=== PATIENT | female | born 1980 | race Asian ===

== ENCOUNTER 2020-02-15 15:10 | Outpatient (CLI) | payer OTHER, SELFPAY ==
--- NOTE | ~2020-02-15 | US_ITS ---
US thyroid INDICATION: Abnormal thyroid function tests TECHNIQUE: Real-time sonographic images of the thyroid gland were obtained. COMPARISON: 08/31/2011 FINDINGS: The right thyroid lobe measures 5.3 x 3.3 x 2.8 cm. The left thyroid lobe measures 4.8 x 1 .9 x 1.9 cm. There are multiple masses of the right lobe, largest dominant mass measuring 2.7 x 1.5 x 1.7 cm which is solid, hyperechoic, wider than tall, irregular margins and no internal calcification s, TR 4. There is a hypoechoic right thyroid mass measuring 2.1 x 1.4 x 1.7 cm which is solid, hypoec hoic, wider than tall, irregular margins with no calcifications, TR 4. In the left lobe there is a he terogeneous mass predominantly hyperechoic, solid, wider than tall, irregular margins measuring 1.9 c m maximum dimension, TR 4. Normal vascular flow is present. IMPRESSION: 1. Multiple bilateral thyroid masses. Follow-up ultrasound-guided fine-needle aspiration biopsy of 2 dominant right and one dominant left thyroid masses recommended. Reviewed, dictated and finalized at location A. IMPRESSION: 1. Multiple bilateral thyroid masses. Follow-up ultrasound-guided fine-needle aspiration biopsy of 2 dominant right and one dominant left thyroid masses naseem mmended.
== END 2020-02-15 15:11 | disposition home or self-care (01) ==
PROVIDERS: PCP Family Medicine; Visit Provider Family Medicine
DX: E04.1 Nontoxic single thyroid nodule (principal)
CPT/HCPCS: 76536

== ENCOUNTER 2020-02-25 13:42 | Outpatient (CLI) | payer OTHER, SELFPAY ==
--- NOTE | ~2020-02-25 | US_ITS ---
EXAMINATION: US abdomen complete EXAM DATE: 02/25/2020 14:10 INDICATION: Epigastric pain, fever. TECHNIQUE: Multiple grayscale and Doppler images of the complete abdomen were obtained (by a technolo darlyn who performed the scan) and subsequently reviewed. Comparison is made to prior examination from 11/22/2016. FINDINGS: The abdominal aorta is normal in caliber. Visualized portion IVC is patent. The pancreatic head a nd body are normal in appearance. The pancreatic tail is not visualized. The liver has normal echogenicity and contour. There are no focal liver lesions identified. There is no evidence of intrahepatic biliary duct dilation. Portal venous flow was seen in the hepatopedal , normal direction and has normal Doppler waveform. Common bile duct measures 5 mm, which is normal. The gallbladder fossa is unremarkable. Right kidney: There is normal contour and echogenicity. It measures 9.6 x 4.1 x 4.6 centimeters. T here are no focal renal lesions identified. There is no hydronephrosis. Left kidney: There is normal contour and echogenicity. It measures 11.4 x 5.8 x 4.5 centimeters. T here are no focal renal lesions identified. There is no hydronephrosis. The spleen measures 9.6 centimeters and is morphologically normal. IMPRESSION: 1. Unremarkable complete abdominal ultrasound exam. Reviewed, dictated and finalized at location A.
== END 2020-02-25 13:43 ==
LOC: MICIMG 13:44
PROVIDERS: Visit Provider Family Medicine
DX: R10.13 Epigastric pain (principal)
CPT/HCPCS: 76700

== ENCOUNTER 2020-03-25 02:07 | Outpatient (CLI) | payer OTHER, SELFPAY ==
[2020-03-25 17:03] LABS: SARS-CoV-2 RNA PCR Negative
== END 2020-03-25 02:08 | disposition home or self-care (01) ==
LOC: ANHCOVIDDT 02:07
PROVIDERS: PCP Family Medicine; Visit Provider Internal Medicine Gastroenterology
DX: Z01.812 Encounter for preprocedural laboratory examination (principal); Z20.828 Contact with and (suspected) exposure to other viral communicable diseases
CPT/HCPCS: 87635; C9803; U0003

== ENCOUNTER 2020-03-27 00:09 | Day surgery (SDC) | payer OTHER, SELFPAY ==
[2020-03-17 14:28] VITALS: BMI 32.3
[2020-03-27 08:32] VITALS: BP 124/78; PULSE 76; RESP 16; TEMP 36.8; O2SAT 100; BMI 32.4
--- NOTE | 2020-03-27 08:40 | WPDANESEPPF ---
Anes - Initial Pre Proc Eval Procedure: Operation Date: 03/27/20 09:00 Proposed Procedures p Esophagogastroduodenoscopy - Ezequiel Costello MD Date/Time: 03/27/20 08:40 Surgeon: Ezequiel Costello MD Pre Op Diagnosis: heartburn Patient Data Age: 39 Gender: F Height: 1.5 m Weight: 72.8 kg Last Vital Signs Temp 36.8 C 03/27/20 08:32 Pulse 76 03/27/20 08:32 Resp 16 03/27/20 08:32 BP 124/78 03/27/20 08:32 Pulse Ox 100 03/27/20 08:32 Allergies Allergy/AdvReac Type Severity Reaction Status Date / Time No Known Allergies Allergy Verified 03/17/20 14:23 Home Medications Medication Instructions Recorded Confirmed Type cetirizine [Zyrtec] 10 mg PO DAILY 03/17/20 03/27/20 History omeprazole 20 mg PO BID 03/17/20 03/27/20 History acetaminophen [Tylenol] 325 mg PO ONCE PRN 03/27/20 03/27/20 History Patient hx anesthesia problems: none Family hx anesthesia problems: none PMFSH Past Medical History Medical History (Updated 03/27/20 @ 08:42 by Rashel Aponte MD) Anxiety Gastroesophageal reflux disease Brtit's disease Obesity Vaginal delivery x 2 (vaginal after ) Surgical History Surgical History History of cholecystectomy Previous section Social History Social History Smoking status: Never smoker Second hand tobacco smoke exposure: No Alcohol intake: never Substance use: never Living arrangements: with family Additional living arrangements comments: Spouse and 4 Children Gender identity (if verbalized by the patient): Female Spiritual care concerns: No Anes - Eval Final PreProcedure Day of Procedure 03/27/20 08:40 Patient weight: obese Heart: regular rate and rhythm Lungs: clear to auscultation and normal air movement Airway: Mallampati scale class II Neurological: alert and oriented Last oral intake: >/= 8 hours ASA classification: III Emergent: no Anesthetic plan: proceed Anesthesia type and monitoring: general GIVS Informed Consent: The patient's anesthetic plan and its attendant risks and benefits were discussed with the patient/family/POA. Questions were solicited and answers provided to the satisfaction of the patient/family/POA.
[2020-03-27] MEDS: LACTATED RINGERS 1,000 ML 150 ML IV CONT (09:14)
--- NOTE | 2020-03-27 09:21 | WPDGICN ---
Assessment and Plan Assessment and plan (1) Epigastric abdominal pain: Code(s): R10.13 - Epigastric pain Status: Acute Assessment and Plan: Epigastric pain most suspicious for acid reflux. Patient already treated with Prilosec would recommend continuing this as well as anti-reflux measures. Because of ongoing pain an EGD will be performed today. 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 John Triana. Patient complains of mid epigastric pain substernal discomfort. She describes is a fullness or a swelling. It appears to worsen particularly after eating large amounts of food. She denies ever pain however. She denies any dysphagia. She denies weight loss or bleeding. Currently followed by because of thrombocytosis. Patient presents today for endoscopy to evaluate this epigastric discomfort. Patient has been treated with Prilosec an acids with some improvement of symptoms. Symptoms have been present since at least December of this year. Review of Systems Review of Systems: All systems reviewed & are unremarkable except as noted in HPI and below PMFSH Past Medical History Medical History Anxiety Gastroesophageal reflux disease Britt's disease Obesity Vaginal delivery x 2 (vaginal after ) Surgical History Surgical History History of cholecystectomy Previous section Family History Family History Mother Hypertension Patient's mother is Father Patient's father is in good health Sibling Patient's sister is in good health Patient's brother is in good health Other Family history of allergic disorder Social History Social History Smoking status: Never smoker Second hand tobacco smoke exposure: No Alcohol intake: never Substance use: never Living arrangements: with family Additional living arrangements comments: Spouse and 4 Children Gender identity (if verbalized by the patient): Female Spiritual care concerns: No Meds Home Medications and Allergies Home Medications Medication Instructions Recorded Confirmed Type cetirizine [Zyrtec] 10 mg PO DAILY 03/17/20 03/27/20 History omeprazole 20 mg PO BID 03/17/20 03/27/20 History acetaminophen [Tylenol] 325 mg PO ONCE PRN 03/27/20 03/27/20 History Allergies Allergy/AdvReac Type Severity Reaction Status Date / Time No Known Allergies Allergy Verified 03/17/20 14:23 Vital Signs Vital Signs - 24 hr 03/27/20 08:32 Temperature 98.3 F Pulse Rate 76 Respiratory Rate 16 Blood Pressure 124/78 Pulse Oximetry 100 Exam Narrative: Exam Narrative: Physical exam reveals patient to be alert. Vital signs stable. HEENT exam unremarkable. She is anicteric. Lungs are clear to auscultation and percussion. Heart is without murmur or extra sounds. Abdominal exam bowel sounds are present soft nontender with no organomegaly. Digital rectal exam deferred at this time.
[2020-03-27] MEDS: BENZOCAINE (*SP) 60 ML SPRAY CAN (HURRICAINE) 1 SPRAY MUCOUS MEM (09:36)
[2020-03-27 09:45] VITALS: BP 103/58; PULSE 71; RESP 22; O2SAT 97
[2020-03-27 09:55] VITALS: BP 104/59; PULSE 65; RESP 21; O2SAT 98
[2020-03-27 10:05] VITALS: BP 113/73; PULSE 77; RESP 19; O2SAT 97
== END 2020-03-27 10:35 | disposition home or self-care (01) ==
PROVIDERS: PCP Family Medicine; Referring Provider Internal Medicine Hematology & Oncology; Visit Provider Internal Medicine Gastroenterology
PROC: 0DJ08ZZ Inspection of Upper Intestinal Tract, Via Natural or Artificial Opening Endoscopic (ICD-10-PCS; CPT 43235; principal; 2020-03-27 09:00)
DX: R10.13 Epigastric pain (principal); K21.9 Gastro-esophageal reflux disease without esophagitis; E06.3 Autoimmune thyroiditis; E66.9 Obesity, unspecified; Z68.32 Body mass index [BMI] 32.0-32.9, adult
CPT/HCPCS: 43239; 87081; 87635; C9803; J2704; J7120; U0003

== ENCOUNTER 2021-01-10 10:19 | Outpatient (CLI) | payer OTHER, SELFPAY ==
--- NOTE | ~2021-01-10 | MM_ITS ---
EXAMINATION: MM screening joan BI w josh HISTORY: Screening TECHNIQUE: Craniocaudal and mediolateral oblique 3-D tomosynthesis images were obtained and synthetic 2-D images were generated. CAD analysis was submitted and interpreted. COMPARISON: 06/28/2018 BREAST PARENCHYMAL COMPOSITION: There are scattered areas of fibroglandular density. FINDINGS: There is no evidence of suspicious mass, calcification, or architectural distortion to sugg est malignancy in either breast. There has been no suspicious interval change. IMPRESSION: 1. No mammographic evidence of malignancy. 2. Recommend routine screening mammography in one year. BI-RADS Category 1: Negative Reviewed, dictated and finalized at location A.
== END 2021-01-10 10:20 | disposition home or self-care (01) ==
LOC: ANHIMG 10:21
PROVIDERS: PCP Family Medicine; Visit Provider Obstetrics & Gynecology
DX: Z12.31 Encounter for screening mammogram for malignant neoplasm of breast (principal)
CPT/HCPCS: 77063; 77067

== ENCOUNTER → 2022-03-25 09:31 | Outpatient (CLI) | payer BC, SELFPAY ==
--- NOTE | ~2022-03-25 | XR_ITS ---
EXAMINATION: XR knee RT min 4V DATE: 03/25/2022 10:11 INDICATION: Right knee pain. TECHNIQUE: 4 views of right knee including standing views were obtained. COMPARISON: None. FINDINGS: Bone alignment is normal. No fracture. There is mild osteoarthritis of lateral and patellof emoral compartments characterized by tiny osteophytes. No joint space narrowing. No knee joint effusi on. IMPRESSION: 1. Mild right knee osteoarthritis. Reviewed, dictated and finalized at location A.
--- NOTE | ~2022-03-25 | XR_ITS ---
EXAMINATION: XR knee LT min 4V DATE: 03/25/2022 10:11 INDICATION: Left knee pain. TECHNIQUE: 4 views of left knee including standing views were obtained. COMPARISON: None. FINDINGS: Bone alignment is normal. No fracture. There is mild osteoarthritis of medial and lateral c ompartments. No knee joint effusion. IMPRESSION: 1. Mild left knee osteoarthritis. Reviewed, dictated and finalized at location A.
== END ==
PROVIDERS: PCP Family Medicine; Visit Provider Chiropractor
DX: M17.0 Bilateral primary osteoarthritis of knee (principal)
CPT/HCPCS: 73564

== ENCOUNTER 2022-04-08 09:47 | Outpatient (CLI) | payer BC, SELFPAY ==
--- NOTE | ~2022-04-08 | MR_ITS ---
EXAMINATION: MR knee LT wo con DATE: 04/08/2022 10:29 INDICATION: Chronic left knee pain. TECHNIQUE: Magnetic resonance imaging (MRI) of the left knee was performed without intravenous contra st. Sequences included axial PD-weighted FS FSE, coronal PD-weighted FSE and PD-weighted FS FSE, sagi ttal PD-weighted FSE, and sagittal T2-weighted FS FSE. COMPARISON: Left knee radiographs 03/25/2022 FINDINGS: Medial compartment: Medial meniscus is normal. There is cartilage surface irregularity of tibial condyle and femoral cond yle. Osteophytes are noted. Lateral compartment: Lateral meniscus is normal. Lateral compartment cartilage is normal. Osteophytes are noted. Patellofemoral compartment: There is deep partial thickness cartilage loss of patellar lateral facet with mild subchondral edema- like marrow signal intensity. There is deep partial thickness cartilage loss of central and lateral t rochlea. Osteophytes are noted. Ligaments and tendons: The anterior and posterior cruciate ligaments are normal. Medial collateral ligament and lateral khari ateral ligament complex are normal. There is mild patellar tendinopathy. Fluid: There is a small knee joint effusion. There is trace fluid in a Quevedo's cyst. There is mild prepatell ar and superficial infrapatellar bursitis. IMPRESSION: 1. Moderate chondrosis of patellofemoral compartment and mild chondrosis of medial compartment. 2. Small knee joint effusion. Reviewed, dictated and finalized at location A. IMPRESSION: 1. Moderate chondrosis of patellofemoral compartment and mild chondrosis of med ial compartment. 2. Small knee joint effusion.
== END 2022-04-08 09:48 ==
PROVIDERS: PCP Family Medicine; Visit Provider Chiropractor
DX: M25.562 Pain in left knee (principal); M25.462 Effusion, left knee
CPT/HCPCS: 73721

== ENCOUNTER 2023-04-14 13:48 | Outpatient (CLI) | payer BC, SELFPAY ==
--- NOTE | ~2023-04-14 | MM_ITS ---
EXAMINATION: MM screening joan BI w josh HISTORY: Screening mammogram TECHNIQUE: Craniocaudal and mediolateral oblique 3-D tomosynthesis images were obtained and synthetic 2-D images were generated. CAD analysis was submitted and interpreted. COMPARISON: 01/10/2021, 06/28/2018 bilateral screening mammogram examinations BREAST PARENCHYMAL COMPOSITION: The breasts are almost entirely fatty. FINDINGS: There is no evidence of suspicious mass, calcification, or architectural distortion to sugg est malignancy in either breast. There has been no suspicious interval change. IMPRESSION: 1. No mammographic evidence of malignancy. 2. Recommend routine screening mammography in one year. BI-RADS Category 1: Negative Reviewed, dictated and finalized at location A.
== END 2023-04-14 13:49 | disposition home or self-care (01) ==
PROVIDERS: PCP Family Medicine; Visit Provider Obstetrics & Gynecology
DX: Z12.31 Encounter for screening mammogram for malignant neoplasm of breast (principal)
CPT/HCPCS: 77063; 77067

== ENCOUNTER 2024-01-25 14:13 | Outpatient (CLI) | payer BC, SELFPAY ==
--- NOTE | ~2024-01-25 | XR_ITS ---
XR wrist RT min 3V Ordering provider: Natalia Wooten, [place] History: . Pain and swelling in interphalangal joints,R wrist swelling . Comparison: January 25, 2024 FINDINGS: BONES: No acute fracture or dislocation. No definite scaphoid fracture. JOINT SPACES: Normal. SOFT TISSUES: Normal. IMPRESSION: No acute osseous abnormality right wrist. Reviewed, dictated and finalized at location A.
--- NOTE | ~2024-01-25 | XR_ITS ---
XR hand RT min 3V Ordering provider: Natalia Wooten, [place] History: . Pain and swelling in interphalangal joints,R wrist swelling . Comparison: June 04, 2013 FINDINGS: BONES: No acute fracture or dislocation. JOINT SPACES: Narrowing of the distal interphalangeal joint of the fifth finger. SOFT TISSUES: Normal. IMPRESSION: No acute osseous abnormality right hand. Narrowing of the distal interphalangeal joint of the fifth finger which may indicate osteoarthritis.. Reviewed, dictated and finalized at location A. IMPRESSION: No acute osseous abnormality right hand. Narrowing of the distal interphalangeal joint of the fifth finger which may ind icate osteoarthritis..
--- NOTE | ~2024-01-25 | XR_ITS ---
EXAMINATION: XR hand LT min 3V DATE: 01/25/2024 14:41 INDICATION: Left hand pain TECHNIQUE: Posteroanterior, oblique and lateral views of the left hand were obtained. COMPARISON: None. FINDINGS: Bone alignment is normal. No fracture. Minimal to mild polyarticular osteoarthritis with tiny margina l osteophytes but relatively preserved joint spaces at the first carpometacarpal and a few metacarpop halangeal and interphalangeal joints. No erosions to suggest inflammatory arthritis. Soft tissues are unremarkable. IMPRESSION: 1. Minimal to mild polyarticular osteoarthritis with typical distribution in the left hand. Reviewed, dictated and finalized at location A. IMPRESSION: 1. Minimal to mild polyarticular osteoarthritis with typical distribution in th e left hand.
== END 2024-01-25 14:14 | disposition home or self-care (01) ==
PROVIDERS: PCP Chiropractor; Visit Provider Chiropractor
DX: M79.89 Other specified soft tissue disorders (principal); M19.042 Primary osteoarthritis, left hand; R22.31 Localized swelling, mass and lump, right upper limb
CPT/HCPCS: 73110; 73130

== ENCOUNTER 2024-02-01 13:23 | Outpatient (CLI) | payer BC, SELFPAY ==
--- NOTE | ~2024-02-01 | US_ITS ---
EXAMINATION: US soft tissue UE RT DATE: 02/01/2024 13:54 INDICATION: Palpable nodule along the ulnar aspect of the distalmost right forearm. TECHNIQUE: Multiple grayscale and Doppler ultrasound images of the region of concern at the ulnar asp ect of the distal right forearm were obtained. COMPARISON: None FINDINGS: Normal appearance to the subcutaneous fat and underlying musculature at the region of concern with no abnormal masses or fluid collections identified. There is a smooth margin to the hyperechoic and sha dowing cortical margin at the ulna. IMPRESSION: 1. Normal study with no masses, fluid collections or other correlate for the palpable mass at the reg ion of concern. Reviewed, dictated and finalized at location A. IMPRESSION: 1. Normal study with no masses, fluid collections or other correlate for the pa lpable mass at the region of concern.
== END 2024-02-01 13:24 ==
LOC: MICIMG 13:24
PROVIDERS: PCP Chiropractor; Visit Provider Chiropractor
DX: M67.431 Ganglion, right wrist (principal)
CPT/HCPCS: 76882

== ENCOUNTER 2024-09-21 09:35 | Emergency (ER) | payer BC, SELFPAY ==
[2024-09-21 09:51] VITALS: BP 157/102; PULSE 75; RESP 16; TEMP 36.5; O2SAT 100
--- NOTE | 2024-09-21 10:01 | ED_ITS ---
HPI - General Adult General Chief complaint: Extremity Problem,Nontraumatic Stated complaint: PAIN IN L INDEX FINGER UP ARM/ELEVATED BP Source: patient Mode of arrival: ambulatory Limitations: no limitations History of Present Illness HPI narrative: 44-year-old female presented for complaint of left hand swelling and index finger pain. Onset 4 days. Also reports elevated blood pressure today (160/90). States the school nurse checked her BP when she inquired about the hand swelling. Patient describes the index finger pain as a nerve pain, and occasionaly has mild pain in the left arm. Also reports occasional chest heaviness. Denies decreased ROM, temperature changes, or color changes to the hand. Finger pain is worse with certain movements. Taking Tylenol and ibuprofen. Denies palpitations, headache, vision changes, dizziness, nausea, vomiting or fever. Patient flew internationally 6 days ago. Related Data Home Medications ?Medication ?Instructions ?Recorded ?Confirmed ?Last Taken ?Type omeprazole 20 mg tablet,delayed 20 mg PO BID 03/17/20 09/21/24 03/26/20 20:00 History release ibuprofen 200 mg tablet (Motrin IB) 200 mg PO Q6H PRN pain 11/30/23 09/21/24 Unknown History levothyroxine 125 mcg capsule 137 mcg PO DAILY 02/10/24 09/21/24 Unknown History Allergies Allergy/AdvReac Type Severity Reaction Status Date / Time No Known Allergies Allergy Verified 09/21/24 09:47 Review of Systems Review of Systems: CONSTITUTIONAL: Denies body aches, fever, chills, or sweats. EYES: Denies visual changes, redness, or discharge. ENT: Denies rhinorrhea, congestion, sore throat, or otalgia. CARDIOVASCULAR: Denies chest pain, palpitations, or edema. RESPIRATORY: Denies cough or dyspnea. GASTROINTESTINAL: Denies abdominal pain, nausea, vomiting, or diarrhea. GENITOURINARY: Denies dysuria or hematuria. SKIN: Denies rash, itching, or wounds. MUSCULOSKELETAL: reports left index finger pain, hand swelling. NEUROLOGIC: Denies headache, numbness, tingling, or weakness. All systems reviewed & are unremarkable except as noted in HPI and below PMFSH Past Medical History Medical History (Updated 09/21/24 @ 10:24 by Staci Archuleta, CHRISTIAN) Arthritis Obesity Anxiety Britt's disease Gastroesophageal reflux disease (vaginal after ) Vaginal delivery x 2 Surgical History Surgical History History of cholecystectomy Previous section Family History Family History Mother Hypertension Patient's mother is Father Patient's father is in good health Sibling Patient's sister is in good health Patient's brother is in good health Other Family history of allergic disorder Social History Social History (Updated 02/10/24 @ 09:17 by Divya Gaspar [facility]) Smoking status: Never smoker Second hand tobacco smoke exposure: No Alcohol intake: never Substance use: never Do You Feel Safe in your Home?: Yes Lack of Transportation: No Lack of Food: Never True Current Housing: I Have Housing Concerned About Future Housing: No Difficulty Paying Gas/Electric Bills: No Difficulty Paying for Meds: No Currently Unemployed: No Education: High School Diploma/GED Difficulty w/ Childcare or Family Care: No Living arrangements: with family Additional living arrangements comments: Spouse and 4 Children Gender identity (if verbalized by the patient): Female Spiritual care concerns: No Comments At time of signature, I have reviewed and agree with nursing past medical, surgical, social and family history unless otherwise noted. Please see nursing chart for further information. There is no relevant family history pertinent to the presenting complaint Exam Narrative: GENERAL: Well-appearing EYES: EOMI. No redness or drainage. Conjunctivae normal. ENT: Mucous membranes pink and moist. No rhinorrhea. NECK: Normal AROM. Supple. No lymphadenopathy. CHEST: No respiratory distress. Clear to auscultation. HEART: Regular rate and rhythm. No murmur appreciated. Normal peripheral pulses. MUSCULOSKELETAL: No bony tenderness to LUE EXTREMITIES: Normal range of motion. Mild left hand swelling, slightly decreased strength in hand physical scientist. SKIN: Warm, dry, no rash. Capillary refill normal. Normal skin turgor. NEURO: No focal deficits. Alert and oriented x3. Gait steady. Course Course Emergency Course: Patient is aware of diagnosis, understands and agrees to treatment plan. Anticipatory guidance given. Patient agrees to follow-up as directed and is aware of reasons to seek care at the emergency department. Portions of this record may have been created with voice recognition software Level of Care: [facility] Visit Vital Signs Vital signs: Vital Signs Temperature 97.7 F 09/21/24 09:51 Pulse Rate 75 09/21/24 09:51 Respiratory Rate 16 09/21/24 09:51 Blood Pressure 157/102 H 09/21/24 09:51 Pulse Oximetry 100 09/21/24 09:51 Temperature 97.7 F 09/21/24 09:51 Pulse Rate 75 09/21/24 09:51 Respiratory Rate 16 09/21/24 09:51 Blood Pressure 157/102 H 09/21/24 09:51 Pulse Oximetry 100 09/21/24 09:51 Medical Decision Making MDM Narrative Medical decision making narrative: Discussed at great length pt needs to follow up with her PCP regarding the elevated BP readings. Also discussed transfer to ER for further evaluation of the hand swelling and BP due to reports of recent travel and intermittent chest pressure. Patient declines to go to the ER but says she will go see her PCP upstairs. Pt appears irritable. Discussed physical exam findings. Advised supportive measures and signs/symptoms to go to the ER. Pt is stable at this time and appropriate for outpt treatment and f/u. Differential Diagnosis Differential Diagnosis: STEMI, AAA, PE, pneumothorax, cardiac tamponade, esophageal rupture, pneumonia, GERD, musculoskeletal pain, endocarditis, pericarditis, URI, bronchitis, anxiety Vital Signs Vital Signs: Vital Signs Temperature 97.7 F 09/21/24 09:51 Pulse Rate 75 09/21/24 09:51 Respiratory Rate 16 09/21/24 09:51 Blood Pressure 157/102 H 09/21/24 09:51 Pulse Oximetry 100 09/21/24 09:51 Temperature 97.7 F 09/21/24 09:51 Pulse Rate 75 09/21/24 09:51 Respiratory Rate 16 09/21/24 09:51 Blood Pressure 157/102 H 09/21/24 09:51 Pulse Oximetry 100 09/21/24 09:51 reviewed Discharge Plan Discharge Clinical Impression: Elevated blood pressure reading, Swelling of left hand Patient Disposition: Home, Self-Care Condition: Stable Instructions: Hypertension (ED) Additional Instructions: You were advised to transfer to the ER for further evaluation of the hand swelling and newly elevated blood pressure and you decline at this time. You were made aware of the risk of refusal including worsening of your condition and . Report to the ER immediately by calling 911 for any worsening symptoms. Follow up with your primary care provider , call today to schedule appointment Recommend monitoring your blood pressure at home every day at the same time, write down the readings and give them to your PCP. Go to the ER for worsening symptoms or concerns Patient Language: Malian Prescriptions: No Action ibuprofen [Motrin IB] 200 mg tablet 200 mg PO Q6H PRN (Reason: pain) levothyroxine 125 mcg capsule 137 mcg PO DAILY omeprazole 20 mg Tablet,Delayed Release (Dr/Ec) 20 mg PO BID Follow-up/Referrals: Natalia Templeton NP [Primary Care Provider] -
== END 2024-09-21 10:28 | disposition home or self-care (01) ==
PROVIDERS: Emergency Provider Nurse Practitioner Family; PCP Nurse Practitioner
DX: R03.0 Elevated blood-pressure reading, without diagnosis of hypertension (principal); M79.89 Other specified soft tissue disorders; Z79.1 Long term (current) use of non-steroidal anti-inflammatories (NSAID); Z79.899 Other long term (current) drug therapy
CPT/HCPCS: 99211; G0463

== ENCOUNTER 2024-12-15 11:22 | Outpatient (CLI) | payer BC, SELFPAY ==
--- NOTE | ~2024-12-15 | MM_ITS ---
EXAMINATION: MM screening joan BI w josh HISTORY: Screening TECHNIQUE: Craniocaudal and mediolateral oblique 3-D tomosynthesis images were obtained and synthetic 2-D images were generated. CAD analysis was submitted and interpreted. COMPARISON: Comparison to multiple prior studies sequentially, with oldest reviewed study dated 06/17. BREAST PARENCHYMAL COMPOSITION: Not dense: There are scattered areas of fibroglandular density. FINDINGS: There is no evidence of suspicious mass, calcification, or architectural distortion to sugg est malignancy in either breast. There has been no suspicious interval change. IMPRESSION: 1. No mammographic evidence of malignancy. 2. Recommend routine screening mammography in one year. BI-RADS Category 1: Negative Reviewed, dictated and finalized at location A.
--- OUTSIDE RECORDS SUMMARY | 2024-12-15 11:25 | XMS_ITS | Continuity of Care Document ---
Author Organization [facility] Address [address] [place] [address] Phone Care Team Providers Care Finance Attorney Name Role Phone Unavailable Unavailable Unavailable Advance Directives Directive Yes / No Effective Date File Name No Information Encounters Encounter Description Practice Location Reason(s) For Visit Diagnoses Date Provider Providers Copied on Encounter [facility], [address] [facility], [place], [place], [id number], [place] tel:[phone] [facility] No Information Sep- 3201 7 No Information Referring Provider: STERLING JOE, [address] [place] [address],[place], [address]. tel:[phone] Family History Family Member Type Diagnosis Age At Onset No Information Payers Payer name Insurance type Covered libertarian ID Authoriza mk(s) [facility] PPO [id number] Social History Type Description Quantity Date Captured Comments Sex Female Smoking Status No Information Chief Complaint And Reason For Visit No Information History Of Present Illness Encounter Date Complaint History Of Prese nt Illness No Information Instructions Date Instruction Additional Infor mation No Information Assessments Type Assessment Date No Information
--- OUTSIDE RECORDS SUMMARY | 2024-12-15 11:25 | XMS_ITS | Encounter Summary ---
Author Organization [facility] Patients Know Best of [facility] Address [address] [place] [address] Phone Care Team Providers Care Play Back Operator Name Role Phone Dipesh Gibson MD Primary Care Provider +1- [phone] Encounter Details Date Type Department Care Team (Late st Contact Info) Description 11/06/2024 Results Follow-Up [facility] Endocrinology Metabolism and Lipid [address] [facility] Medicine 13th [place] [address] [place] [address] Dashawn Gilliam MD [address] [facility] [address] [place], [place] [id number] T4, free, TSH Social History Tobacco Use Types Packs/Day Years Used Date Smoking Tobacco: Never Smokeless Tobacco: Never Alcohol Use Standard Drinks/Week Comments No 0 (1 standard drink = 0.6 oz pur e alcohol) Personal Safety Answer Date Recorded Getting School Help Needed Not on file 09/30 Comments Unknown Sex and Gender Information Value Date Recorded Sex Assigned at Not on file 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 Must obtain lab work for future refills 30 tablet 1 11/06/2024 documented in this encounter Miscellaneous Notes * Result Encounter Note - Dashawn Gilliam MD - 11/06/2024 9:09 AM CDT 11/05/2024: TSH 1.16 / FT4 1.3 : on LT4 at 137mcg daily. Continue same dose. Refill till time of next visit. 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 Must obtain lab work for future refills Reorder 10/19/2024 11/06/2024 documented as of this encounter Care Teams Play Back Operator Relationship Specialty Start Date End Date Dipesh Gibson MD [facility] [place] [address] PCP - General Family Medicine 06/26/19 documented as of this encounter
--- OUTSIDE RECORDS SUMMARY | 2024-12-15 11:25 | XMS_ITS | Data Portability ---
Author Organization [place] [facility] [employer], Main Office Address [address] [place] [address] Assessment No assessment recorded. Plan of Treatment Reminders Order Date Submit Date Provider Last Modified By Organization Details Last Modified Time Details Appointments None recorded. Lab lipid panel, serum 2022 023 [facility], [address], [place], [address], 3 08:11:05 CMP, serum or plasma 2022 023 [facility] [facility], [address], [place], [address], 3 08:11:06 Referral None recorded. Procedures None recorded. Surgeries None recorded. Imaging None recorded. Medication Orders cholecalcif dieter (vitamin D3) 1,250 mcg (50,000 unit) capsule 2023 024 [id number], [address] [place], [place], [id number], 4 14:14:09 amoxicillin 875 mg-potassiu m clavulanate 125 mg tablet 2023 024 [id number], [address] [place], [place], [id number], 4 14:14:33 Patient TargetsNo targets recorded. Patient Instructions Encounter Date Encounter Id Patient Instructions Last Modified By Organization Details Last Modified Time 12/15/2023 [id number] I advised never use qtips . [email or web address] Not available 01/01/2024 09:57:57 Reason for Referral None Reported. Results Created Date Observation Date Name Description Value Unit Range Abnormal Flag Note LastModifiedBy Organization Detail LastModifiedTime 01/29/20 21 01/28/2021 urina lysis , dipst ick Leukocytes (reference range: negative kimberly/ l) Negati ve Not Available [address] , [address], [place], [address], 01/28/2021 12:07:35 01/29/20 21 01/28/2021 urina lysis , dipst ick Nitrite (reference rage: negative mg/dl) negati ve Not Available [address] , [address], [place], [address], 01/28/2021 12:07:35 01/29/20 21 01/28/2021 urina lysis , dipst ick Urobilinogen (reference range: 0.2-1 mg/dl) 0.2 Not Available [address] , [address], [place], [address], 01/28/2021 12:07:35 01/29/20 21 01/28/2021 urina lysis , dipst ick Protein (reference range: negative mg/dl) Negati ve Not Available [address] , [address], [place], [address], 01/28/2021 12:07:35 01/29/20 21 01/28/2021 urina lysis , dipst ick pH (reference range: 5-7) 7.5 Not Available [address] , [address], [place], [address], 01/28/2021 12:07:35 01/29/20 01/28/2021 urina lysis , dipst ick Blood (reference range: negative Marquez/ l) Non-He molyze d: Trace Not Available [address] , [address], [place], [address], 01/28/2021 12:07:35 01/29/20 21 01/28/2021 urina lysis , dipst ick Specific [place] (reference range: 1.005-1.030) 1.015 Not Available [facility]_[address] , [address], [place], [address], 01/28/2021 12:07:35 01/29/20 21 01/28/2021 urina lysis , dipst ick Ketone (reference range: negative mg/dl) Negati ve Not Available [address] , [address], [place], [address], 01/28/2021 12:07:35 01/29/20 21 01/28/2021 urina lysis , dipst ick Bilirubin (reference range: negative mg/dl) Negati ve Not Available [address] , [address], [place], [address], 01/28/2021 12:07:35 01/29/20 21 01/28/2021 urina lysis , dipst ick Glucose (reference range: negative mg/dl) Negati ve Not Available [address] , [address], [place], [address], 01/28/2021 12:07:35 01/29/20 21 01/28/2021 urina lysis , dipst ick Appearance Clear Not Available [address] , [address], [place], [address], 01/28/2021 12:07:35 01/29/20 21 01/28/2021 urina lysis , dipst ick Color Pale Yellow Not Available [facility] [address], [place], [address], 01/28/2021 12:07:35 01/13/20 21 01/10/2021 imagi ng/di agnos tic resul t No observ ation record ed. [id number] [place] [address] [address], [place], [address], 09/15/2022 08:14:11 03/25/20 22 03/25/2022 imagi ng/di agnos tic resul t No observ ation record ed. [id number] [facility] [address], [place], [address], 09/15/2022 08:14:11 03/25/20 22 03/25/2022 imagi ng/di agnos tic resul t No observ ation record ed. [id number] [facility] [address], [place], [address], 09/15/2022 08:14:11 04/09/20 22 04/08/2022 MRI, knee, w/o contr ast No observ ation record ed. [id number] [facility] [address], [place], [address], 09/15/2022 08:14:11 04/14/20 23 04/14/2023 MAMMO , scree cindy, tomos ynthe sis, bilat eral No observ ation record ed. [email or web address] [address], [place], [address], 04/15/2023 08:38:54 Result Notes None recorded. Problems Name Problem SNOMED Code Status Onset Date Resolution Date Notes Provider Name and Address Organization Details Recorded Time Hypercholeste rolemia 14331228 Active 2018 Not Available [facility] 3 08:09:18 Thyroid nodule 203848328 Active 2018 Not Available [facility] 3 08:09:18 Carpal tunnel syndrome 79283402 Active 2018 Not Available [facility] 3 08:09:18 Vitamin deficiency 94848154 Active 2018 Not Available [facility] 3 08:09:19 Allergic rhinitis 33122264 Active 2022 Dipesh Gibson MD [address], [address], [place], [address] , [employer] 3 12:34:03 Acute sinusitis 56166893 Active 2022 Dipesh Gibson MD [address], [address], [address] , [employer] 3 10:48:08 COVID-19 357840235 Active 2022 Dipesh Gibson MD [address], [address], [place], [address] , [employer] 3 11:06:17 Vitamin D deficiency 13312521 Active 2023 DEANNA Medellin [address], [address], [place], [address] , [email or web address] 4 14:13:23 Problem Notes None recorded. Medical Equipment None Reported. Allergies No known drug allergies Medications Name Sig Start Date Stop Date Status Note LastModified by Organization Details LastModified Time binaxnow cov kit home [facility] 12/07 completed Not Available Not Available Not Available levothyroxi ne 137 mcg tablet TAKE 1 TABLET (137 MCG TOTAL) BY MOUTH DAILY NEED FOLLOW APPOINTME NT & LABS active Not Available Not Available No t Available ofloxacin 0.3 % eye drops 05/15 completed Not Available Not Available Not Available penicillin V potassium 500 mg tablet TAKE 1 TABLET BY MOUTH FOUR TIMES A DAY UNTIL FINISHED 01/16 completed Not Available Not Available Not Available ciprofloxac in 500 mg tablet TAKE 1 TABLET BY MOUTH EVERY 12 HOURS FOR 5 DAYS active Not Available Not Available No t Available levothyroxi ne 100 mcg tablet TAKE 1 TABLET BY MOUTH EVERY DAY 01/28 completed Not Available Not Available Not Available amoxicillin 875 mg tablet Take 1 tablet every 12 hours by oral route. active Not Available Not Available No t Available cephalexin 500 mg capsule TAKE 1 CAPSULE BY MOUTH EVERY 8 HOURS 05/15 completed Not Available Not Available Not Available levothyroxi ne 125 mcg tablet TAKE 1 TABLET BY MOUTH EVERY DAY 12/14 completed Not Available Not Available Not Available omeprazole 20 mg capsule,del ayed release TAKE 1 CAPSULE BY MOUTH EVERY DAY active Not Available Not Available No t Available Levaquin 500 mg tablet Take 1 tablet every 24 hours by oral route. active Not Available Not Available No t Available ergocalcife rol (vitamin D2) 1,250 mcg (50,000 unit) capsule TAKE 1 CAPSULE (50,000 UNITS TOTAL) BY MOUTH EVERY 14 (FOURTEEN ) DAYS 12/14 completed Not Available Not Available Not Available ibuprofen 600 mg tablet TAKE 1 TABLET BY MOUTH EVERY 6- 8 HOURS active Not Available Not Available No t Available methylpredn isolone 4 mg tablets in a dose pack TAKE 6 TABLETS ON DAY 1 DIRECTED ON PACKAGE AND DECREASE BY 1 TAB EACH DAY FOR A TOTAL OF 6 DAYS 02/10 completed Not Available Not Available Not Available methimazole 10 mg tablet TAKE 1 TABLET BY MOUTH EVERY DAY active Not Available Not Available No t Available fluticasone propionate 50 mcg/actuati on nasal spray,suspe nsion 05/15 completed Not Available Not Available Not Available amoxicillin 875 mg-potassiu m clavulanate 125 mg tablet TAKE 1 TABLET BY MOUTH EVERY 12 HOURS active Not Available Not Available No t Available Nasal [place] 12Hr(oxymet azoline 01/16 completed Not Available Not Available Not Available ProAir HFA 90 mcg/actuati on aerosol inhaler active Not Available Not Available Not Available cholecalcif dieter (vitamin D3) 1,250 mcg (50,000 unit) capsule TAKE 1 CAPSULE BY MOUTH EVERY WEEK WITH MEALS active Not Available Not Available No t Available cholecalcif dieter (vitamin D3) 50 mcg (2,000 unit) capsule TAKE 1 CAPSULE BY MOUTH DAILY active Not Available Not Available No t Available ID NOW COVID-19 Test Kit TEST DIRECTED TODAY 12/07 completed Not Available Not Available Not Available [employer] COVID-19 Ag Self Test kit Use as Directed on the Package 12/07 completed Not Available Not Available Not Available Paxlovid 300 mg (150 mg x 2)-100 mg tablets in a dose pack FOLLOW PACKAGE DIRECTION S 12/14 completed Not Available Not Available Not Available Vitals Date Recorded Body height Body mass index (BMI) Body weight Body temperature Heart rate Oxygen saturation Oxygen saturation in Arterial blood by Pulse oximetry Systolic blood pressure Diastolic blood pressure Provider Name and Address Organization Details Last Updated DateTime 3 149.86 cm 37 kg/m2 15038.4 g 98.1 [degF] 87 /min 98 % 98 % 122 mm[Hg] 74 mm[Hg] RUBINA Croft [facility] [employer] [facility] 3 12:18:27 Date Recorded Body height Body mass index (BMI) Body weight Body temperature Heart rate Oxygen saturation Oxygen saturation in Arterial blood by Pulse oximetry Respiratory rate Systolic blood pressure Diastolic blood pressure Provider Name and Address Organization Details Last Updated DateTime 4 149.86 cm 36.6 kg/m2 57849.2 2 g 98.1 [degF] 97 /min 98 % 98 % 16 /min 130 mm[Hg] 94 mm[Hg] Shelli Lock RN [facility] [employer] [facility] 4 14:02:43 Date Recorded Body mass index (BMI) Body height Oxygen saturation Oxygen saturation in Arterial blood by Pulse oximetry Heart rate Body temperature Body weight Systolic blood pressure Diastolic blood pressure Provider Name and Address Organization Details Last Updated DateTime 1 36.4 kg/m2 149.86 cm 97 % 97 % 90 /min 97.2 [degF] 85276.6 3 g 118 mm[Hg] 90 mm[Hg] Not Available [employer] 3 08:08:27 Social History None recorded. Functional Status None recorded. Mental Status None recorded. Family History Nothing Reported. Medical History No medical history recorded. Gynecological HistoryNo gynecological history recorded. Obstetrics History GPAL:G 0 P 0 0 0 0 Past Encounters Encounter ID Performer Location Encounter Start Date Encounter Closed Date Diagnosis/Indication Diagnosis SNOMED-CT Code Diagnosis ICD10 Code Diagnosis Note [id number] Dipesh Gibson MD [facility] [address] [place] [address] 01/28/2021 00:00:00 01/29/2021 08:42:49 [id number] Dipesh Gibson MD [facility] [address] [place] [place] [address] 12/07/2022 12:10:32 12/07/2022 12:43:52 Adult health examination 443434386 Z00.00 Hyperlipid emia screening 742369786 Z13.220 Allergic rhinitis 798000 04 J30.9 Use virgil D and hot packs to sinuses [id number] Ozzie Guillen MD [facility] [address] [place] [address] 12/15/2023 13:51:15 12/15/2023 14:34:51 Acute sinusitis 67255904 J01.90 Allergic rhinitis 647546 04 J30.9 Vitamin D deficiency 347 15174 E55.9 Health Concerns Section Related Observation LastModified by Organization Detai ls LastModified Time None Recorded Concern Status LastModified by Organization Details LastModified Time None Recorded Advance Directives Directive None Recorded Payers Encounter Date Sequence Insurance Name Policy Number Policy Mercedes Covered Member ID Mercedes Member ID Guarantor Name 12/07/2022 1 [place] [id number] Vimal Alba [id number] Dana Alba 12/15/2023 1 [place] [id number] Vimal Alba [id number] [facility] Alba Notes Date Note Type Note Provider Name and Address Organization Details Recorded Time 12/07/2022 text/html Here today for a wellness visit. Needs BW her endo is ordering Thyroid and vit D.Has sinus issues and has pressure on face has watery eyes and itchy. Taking claritin. 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 Needs colon cancer screening once she turns 43. Concerned about weight. Interested in meds for weight loss. Wants to know what her options are. Dipesh Gibson MD [address] [facility], [place] [address], [place], [address], [employer] [facility] [employer] [facility] 12/07/2022 19:53:14 12/15/2023 text/html no fever DEANNA Medellin [address] [place] [address], [place], [address], [employer] [facility] [employer] 01/01/2024 09:59:46 OBGyn Episode No OBEpisode recorded.
--- OUTSIDE RECORDS SUMMARY | 2024-12-15 11:25 | XMS_ITS | Referral Summary ---
Author Organization [facility] 1 Address [address] [place] [address] Care Team Providers Care Casing Man Name Role Phone Dipesh Gibson MD Primary Care Provider +1- [phone] Encounters Date Type Department Care Team Description 11/06/2024 Results Follow-Up [facility] Endocrinology Metabolism and Lipid [address] [facility] 13th [place] [address] [place] [address] Dashawn Gilliam MD T4, free, TSH from Last 3 Months Allergies No known active allergies Medications fluticasone propionate (FLONASE) 50 mcg/actuation nasal spray Administer 2 sprays into affected nostril(s) daily 9 Active omeprazole (PriLOSEC) 20 mg capsule Take 20 mg by mouth daily Active cetirizine (ZyrTEC) 10 mg tablet Take 10 mg by mouth daily Active cholecalciferol (VITAMIN D-3) 2000 unit tabletIndication s:Vitamin D deficiency Take 1 tablet (2,000 Units total) by mouth daily 90 tablet 3 3 Active levothyroxine (SYNTHROID) 137 mcg tabletIndication s: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 The right and left thyroid nodules are not suspicious and the entire thyroid is heterogenous suggestive of autoimmune thyroid disease. 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 Knee pain 06/18/2011 Resolved Problems Problem Noted Date Diagnosed Date Resolved Date Hyperthyroidism 05/06/2020 07/22/2020 Social History Tobacco Use Types Packs/Day Years [...] on file 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 Gender Identity Female 05/19/2018 2:13 PM CDT Sexual Orientation Not on file Last Filed Vital Signs Vital Sign Reading Time Taken Comments Blood Pressure 133/86 04/13/2023 3:41 PM CDT Pulse 80 04/13/2023 3:41 PM CDT Temperature 36.8 C (98.3 F) 04/13/2023 3:41 PM CDT Respiratory Rate - - Oxygen Saturation - - Inhaled Oxygen Concentration - - Weight 81.2 kg (179 lb) 04/13/2023 3:41 PM CDT Height 149.9 cm (4' 11) 04/13/2023 3:41 PM CDT Body Mass Index 36.15 04/13/2023 3:41 PM CDT Plan of Treatment Not on file Procedures Procedure Name Priority Date/Time Associated Diagnosis Comments TSH Routine 11/05/2024 8:19 AM CDT Hypothyroidism due to Britt thyroiditis T4, FREE Routine 11/05/2024 8:19 AM CDT Hypothyroidism due to Britt thyroiditis from Last 3 Months Results * TSH (11/05/2024 8:19 AM CDT) TSH 1.16 mIU/L [facility] Comment: Reference Range > or = 20 Years 0.40-4.50 Ranges First trimester 0.26-2.66 Second trimester 0.55-2.73 Third trimester 0.43-2.91 Blood 11/05/2024 8:19 AM CDT 11/05/2024 8:20 AM CDT us Dashawn Gilliam MD LAB BLOOD ORDERABLES Final Resu lt Performing Organization Address [facility]/ZIP Co de Phone Number [facility] [address] [place] [address] * T4, free (11/05/2024 8:19 AM CDT) Free T4 1.3 0.8 - 1.8 ng/dL [facility] Blood 11/05/2024 8:19 AM CDT 11/05/2024 8:20 AM CDT Dashawn Gilliam MD LAB BLOOD ORDERABLES Final Resu lt Performing Organization Address City/[facility]/ZIP Co de Phone Number [facility] [address] [place] [address] from Last 3 Months Insurance [facility] ACCESS CHOICE ANTHEM [place]ESS CHO[place] [address] BLUE Talasim OOS Member Subscriber Plan / Payer (Ef fective 2023-Present) Name:Luiz Willis Relation to Subscriber:Spouse Name:VIDHI WILLISED Date of :1963 (Home) Address: [address] [place] [phone] Payer ID:[id number] (NAIC) Type:[facility] Address: [id number] [place] [id number] Care Teams Casing Man Relationship Specialty Start Date End Date Dipesh Gibson MD [address] [place] [address] [place] [address] PCP - General Family Medicine 06/26/19
--- OUTSIDE RECORDS SUMMARY | 2024-12-15 11:25 | XMS_ITS | Encounter Summary ---
Author Organization [facility] Address [address] [place] [address] Phone Care Team Providers Care Financial Data Analyst Name Role Phone Dipesh Gibson MD Primary Care Provider +1- [phone] Encounter Details Date Type Department Care Team (Late st Contact Info) Description 09/17/2019 Documentation [facility] Rheumatology [address] [facility] Advanced Medicine 5th [place] [address] [place] [address] Ladarius Avendano MD [address] [place] [address] [place] [id number] Social History Tobacco Use Types Packs/Day Years Used Date Smoking Tobacco: Never Smokeless Tobacco: Never Alcohol Use Standard Drinks/Week Comments No 0 (1 standard drink = 0.6 oz pur e alcohol) Comments Unknown Sex and Gender Information Value Date Recorded Sex Assigned at Not on file 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
--- OUTSIDE RECORDS SUMMARY | 2024-12-15 11:25 | XMS_ITS | Encounter Summary ---
Author Organization [facility] Address [address] [place] [address] Phone Care Team Providers Care Power Plant Superintendent Name Role Phone Dipesh Gibson MD Primary Care Provider [phone] Encounter Details Date Type Department Care Team (Late st Contact Info) Description 09/13/2019 Orders Only [facility] Endocrinology Metabolism and Lipid [address] [facility] 5th [place] [address] [place] [address] Ladarius Avendano MD [address] [place] [address] Thyroid nodule (Primary Dx) Social History Tobacco Use Types Packs/Day Years Used Date Smoking Tobacco: Never Smokeless Tobacco: Never Alcohol Use Standard Drinks/Week Comments No 0 (1 standard drink = 0.6 oz pur e alcohol) Comments Unknown Sex and Gender Information Value Date Recorded Sex Assigned at Not on file Legal Sex Female 11:58 PM USABILITY SPECIALIST Gender Identity Female 05/19/2018 2:13 PM CDT Sexual Orientation Not on file documented as of this encounter Plan of Treatment Scheduled Orders Name Type Priority Associated Diagnoses Orde r Schedule T4, free Lab Routine Thyroid nodule 1 Occurrences starting 09/13/2019 until 09/12/2020 documented as of this encounter Procedures Procedure Name Priority Date/Time Associated Diagnosis Comments TSH Routine 09/20/2019 3:37 PM USABILITY SPECIALIST Thyroid nodule T4, FREE Routine 09/20/2019 3:37 PM USABILITY SPECIALIST documented in this encounter Results * T4, free (09/20/2019 3:37 PM USABILITY SPECIALIST) Free T4 1.3 0.8 - 1.8 ng/dL [facility] 09/20/2019 3:37 PM USABILITY SPECIALIST 09/20/2019 3:37 PM USABILITY SPECIALIST Narrative [facility] - 09/21/2019 9:30 AM USABILITY SPECIALIST FASTING:NO FASTING: NO Resulting Agency Comment Performing Organization Information: Site ID: [id number] Name: [facility] Address: [address] [place] [address] Director: Raghav Carpio D.O., MPH Ladarius Patricio MD LAB BLOOD ORDERABLE S Final Result Performing Organization Address [facility] de Phone Number [facility] [place] * TSH (09/20/2019 3:37 PM USABILITY SPECIALIST) TSH 2.50 mIU/L [facility] Comment: Reference Range > or = 20 Years 0.40-4.50 Ranges First trimester 0.26-2.66 Second trimester 0.55-2.73 Third trimester 0.43-2.91 Blood specimen (specimen) 09/20/2019 3:37 PM USABILITY SPECIALIST 09/20/2019 3:37 PM USABILITY SPECIALIST Narrative [facility] - 09/21/2019 9:30 AM USABILITY SPECIALIST FASTING:NO FASTING: NO Resulting Agency Comment Performing Organization Information: Site ID: [id number] Name: [facility] Address: [address] [place] [address] Director: Raghav Carpio D.O. MPH Ladarius Patricio MD LAB BLOOD ORDERABLE S Final Result Performing Organization Address [facility] Co de Phone Number [facility] [place] documented in this encounter Visit Diagnoses Diagnosis Thyroid nodule- Primary Nontoxic uninodular goiter documented in this encounter Care Teams Power Plant Superintendent Relationship Specialty Start Date End Date Dipesh Gibson MD [facility] [place] [address] PCP - General Family Medicine 06/26/19 documented as of this encounter
--- OUTSIDE RECORDS SUMMARY | 2024-12-15 11:25 | XMS_ITS | Clinical Summary ---
Author Organization [facility] Address [address] [place] [address] Care Team Providers Care Sound Installation Worker Name Role Phone Dipesh Gibson MD Primary Care Provider [phone]- [phone] Allergies No known active allergies Medications fluticasone [...] Diagnosed Date Resolved Date Hyperthyroidism 05/06/2020 07/22/2020 Encounters Date Type Department Care Team Description 11/06/2024 Results Follow-Up [facility] Endocrinology Metabolism and Lipid [address] [facility] 13th [place] [address] [place] [address] Dashawn Gilliam MD T4, free, TSH from Last 3 Months Family History Medical History Relation Name Comments Hypertension Mother Relation Name Status Comments Mother Social History Tobacco Use Types Packs/Day Years [...] on file 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 Gender Identity Female 05/19/2018 2:13 PM CDT Sexual Orientation Not on file Obstetrics History Last Filed Vital Signs Vital Sign Reading [...] 04/13/2023 3:41 PM CDT Plan of Treatment Health Maintenance Due Date Last Done Comments Breast Cancer Screening-Mammogram 1978 Cervical Cancer Screening 1978 Colon Cancer Screening-Colonoscopy 1978 Depression Screening 1978 Hepatitis C Screening 1978 DTaP/Tdap/Td Vaccine (1 - Tdap) 1989 Hepatitis B Screening 1996 Regular Well Visit/Exam 18-64 1996 Influenza Vaccine (Season Ended) 2025 HPV Vaccines Aged Out No longer eligi ble based on patient's age to complete this topic Pneumococcal vaccine <65 Aged Out No longer eligible based on patient's age to complete this topic Procedures Procedure Name Priority Date/Time Associated Diagnosis [...] MD LAB BLOOD ORDERABLES Final Resu lt [facility] [address] [place] [address] * T4, free (11/05/2024 8:19 AM CDT) Free T4 1.3 0.8 - 1.8 ng/dL [facility] Blood 11/05/2024 8:19 AM CDT 11/05/2024 8:20 AM CDT Dashawn Gilliam MD LAB BLOOD ORDERABLES Final Resu lt [facility] [address], [place] [address] from Last 3 Months Insurance ANTHEM ACCESS CHOICE ANTHEM ACCESS CHOICE Member Subscriber Plan / Payer ( fective 2018-Present) Name:Alba Danalisa Vazquez Relation to Subscriber:Self Name:Alba Danalisa Vazquez Payer ID:[id number] (NAIC) Type:[employer] Address: [facility] [id number] [place] [employer] Care Teams Sound Installation Worker Relationship Specialty Start Date End Date Dipesh Gibson MD [facility] [address] PCP - General Family Medicine 06/26/19
--- OUTSIDE RECORDS SUMMARY | 2024-12-15 11:25 | XMS_ITS | Clinical Summary ---
Author Organization [facility] Address [address] [place] [address] Care Team Providers Care In Flight Refueling Craftsman Name Role Phone Unavailable Primary Care Provider Unavailabl e Source Comments [facility],non-owned Affiliates and Associated Physician Practices is amultiple site organization consisting of ambulatory clinics and hospital sitesin [place], [place], [place] and [place]. This disclosure is being madepursuant to the Care Everywhere program and may not contain all information available regarding this patient. Last updated 18.Volley [facility] Allergies No known active allergies Medications * Be aware that medications may not be up to date on this document. Alwaysverify current medications with the patient. ipratropium (ATROVENT) 0.06 % nasal sprayIndications:A cute maxillary sinusitis, recurrence not specified [place] 2 sprays into each nostril 3 times daily as needed 1 bottles 08/25/19 19 Active ofloxacin (OCUFLOX) 0.3 % ophthalmic solutionIndication s:Other mucopurulent conjunctivitis of both eyes 1 to 2 gtt in eye(s) q 2-4h while awake x 2 days. Then 1 to 2 gtt qid x 5 days 1 bottles 08/25/19 19 Active Additional Information Patient not taking.Reported on 10/28/2018 fluticasone propionate (FLONASE) 50 MCG/ACT nasal spray [place] 2 sprays into each nostril once daily 1 bottles 10/29/19 19 Active Family History Medical History Relation Name Comments CAD (Coronary Artery Disease) Mother Hypertension Mother Relation Name Status Comments Mother Social History Tobacco Use Types Packs/Day Years Used Date Smoking Tobacco: Never Smokeless Tobacco: Never Comments Unknown Sex and Gender Information Value Date Recorded Sex Assigned at Not on file 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 Gender Identity Not on file Sexual Orientation Not on file Last Filed Vital Signs Vital Sign Reading Time Taken Comments Blood Pressure 108/64 10/28/2018 11:45 AM CDT Pulse 78 10/28/2018 11:45 AM CDT Temperature 36.6 C (97.9 F) 10/28/2018 11:45 AM CDT Respiratory Rate 16 10/28/2018 11:45 AM CDT Oxygen Saturation 98% 10/28/2018 11:45 AM CDT Inhaled Oxygen Concentration - - Weight 72.1 kg (159 lb) 10/28/2018 11:45 AM CDT Height 149.9 cm (4' 11) 10/28/2018 11:45 AM CDT Body Mass Index 32.11 10/28/2018 11:45 AM CDT Plan of Treatment Health Maintenance Due Date Last Done Comments COLOGUARD (AGES 45-75) - COL ON CA SCREENING 1978 COLON MONITORING 1978 COLONOSCOPY - COLON CA SCREENING 1978 CT COLONOGRAPHY - COLON CA SCREENING 1978 Colorectal Cancer Screening 1978 FIT - COLON CA SCREENING 1978 FLEX SIG - COLON CA SCREENING 1978 LIPID TESTING 1978 MAMMOGRAM 1978 HIV SCREENING 1993 HEPATITIS C SCREENING 05/29/1996 DTAP/TDAP/TD VACCINES (1 - Tdap) 1997 HEPATITIS B VACCINE (1 of 3 - 19+ 3-dose series) 1997 SCREENING FOR DIABETES 06/18/2018 COVID-19 VACCINE ( - 2023-2 5 season) 2024 DEPRESSION SCREENING 07/18/2024 INFLUENZA VACCINE (Season Ended) 2025 ZOSTER VACCINE (1 of 2) 2028 HIB VACCINE Aged Out No longer eligi ble based on patient's age to complete this topic HPV VACCINE Aged Out No longer eligi ble based on patient's age to complete this topic MENINGOCOCCAL (Group B) VACC INE SHARED DECISION-MAKING Aged Out No longer eligibl e based on patient's age to complete this topic MENINGOCOCCAL GROUPS A/C/Y/W VACCINE Aged Out No longer eligible b ased on patient's age to complete this topic PNEUMOCOCCAL VACCINE Aged Out No long er eligible based on patient's age to complete this topic Insurance [facility]
--- OUTSIDE RECORDS SUMMARY | 2024-12-15 11:25 | XMS_ITS | Clinical Summary ---
Author Organization [facility] [address] [facility] [address] Address [address] [facility] 3rd [place] [address] Phone Care Team Providers Care Rail Car Maintenance Mechanic Name Role Phone Dipesh Gibson MD Primary Care Provider [phone] Allergies No known active allergies Medications ciprofloxacin HCl (CIPRO) 500 mg tablet TAKE 1 TABLET BY MOUTH EVERY 12 HOURS 0 Active omeprazole (PriLOSEC) 20 mg Capsule, Delayed Release(E.C.) TAKE 1 CAPSULE BY MOUTH EVERY DAY 0 Active ipratropium bromide (ATROVENT) 42 mcg (0.06 %) [place], Non-Aerosol Administer 2 Sprays in each nostril. 9 Active fluticasone propionate (FLONASE) 50 mcg/spray [place], Suspension nasal inhaler Administer 2 Sprays in each nostril. 9 Active methIMAzole (TAPAZOLE) 10 mg tablet 0 Active calcium citrate-vitamin d3 (CITRACAL D MAX) 315 mg- 250 unit Tablet Take by mouth daily. Active Active Problems Problem Noted Date Diagnosed Date Reactive thrombocytosis 03/18/2020 Dietary iron deficiency without anemia 0 Family History Relation Name Status Comments Brother 1 Alive Brother 2 Alive Daughter 1 Alive Daughter 2 Alive Father Alive Mother Sister 1 Alive Sister 2 Alive Sister 3 Alive Son 1 Alive Son 2 Alive Social History Tobacco Use Types Packs/Day Years Used Date Smoking Tobacco: Never Smokeless Tobacco: Never Alcohol Use Standard Drinks/Week Comments Never 0 (1 standard drink = 0.6 oz pur e alcohol) Comments No Sex and Gender Information Value Date Recorded Sex Assigned at Not on file 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 Gender Identity Not on file Sexual Orientation Not on file Last Filed Vital Signs Vital Sign Reading Time Taken Comments Blood Pressure 128/87 03/04/2020 1:08 PM CDT Pulse 121 03/04/2020 1:08 PM CDT Temperature 36.7 C (98 F) 03/18/2020 2:28 PM CDT Respiratory Rate 22 03/18/2020 2:28 PM CDT Oxygen Saturation 98% 03/04/2020 1:08 PM CDT Inhaled Oxygen Concentration - - Weight 71.7 kg (158 lb) 03/04/2020 1:08 PM CDT Height 149.9 cm (4' 11) 03/04/2020 1:08 PM CDT Body Mass Index 31.91 03/04/2020 1:08 PM CDT Plan of Treatment Health Maintenance Due Date Last Done Comments DTAP/TDAP/TD VACCINES (1 - Tdap) 1997 HEPATITIS B VACCINES (1 of 3 - 19+ 3-dose series) 1997 HPV/Cotest (21-29) 1999 CERVICAL CANCER SCREENING 2008 HPV/Cotest (30-65) 2008 PAP SMEAR 2008 BREAST CANCER SCREENING 2018 COLORECTAL SCREENING 2023 Colorectal Cancer Screening 2023 FIT-DNA Q 3 years 2023 FIT/FOBT Q 1 year 2023 Flex Sig/CT Colonography Q 5 years 2023 INFLUENZA VACCINE (#1) 2024 HPV VACCINES Aged Out No longer eligi ble based on patient's age to complete this topic Care Teams Rail Car Maintenance Mechanic Relationship Specialty Start Date End Date Dipesh Gibson MD PCP - General Family Practice 02/26/20
--- OUTSIDE RECORDS SUMMARY | 2024-12-15 11:25 | XMS_ITS | Continuity of Care Document ---
Author Organization [facility] Address [address] [address] Phone Care Team Providers Care Court Registry Officer Name Role Phone Oli Louis MD Unavailable Unavailable Allergies, Adverse Reactions, Alerts Substance Reaction Status Criticality No Known Allergies Active No Inform ation Medications Medication Instructions Dosage Effective Dates (start - stop) Status Comments irbesartan 150 mg tablet take 1 tablet by oral route every day 150 MG - Active prednisone 20 mg tablet take 3 Tablet by oral route every day 60 MG - Active omeprazole 20 mg capsule,delayed release take 1 capsule by oral route every day before a meal 20 MG - Active Synthroid 137 mcg tablet take 1 tablet by oral route every day 137 MCG - Active Procedures Procedure Date PREV VISIT, NEW, AGE 40-64 OFFICE/OUTPATIENT VISIT, NEW Advance Directives Directive Yes / No Effective Date File Name No Information Encounters Encounter Description Practice Location Reason(s) For Visit Diagnoses Date Provider Providers Copied on Encounter [facility], [address] [place], [place], [id number], tel:[phone] [facility] No Information [address] [facility] [address], [place], [place], [id number] , [place]. tel:[phone] PREV VISIT, NEW, AGE 40-64 [facility], [address], [place], [place], [id number], [place] tel:[phone] [facility] Medicine physical (chief complaint) Essential (primary) hypertensionMononeu ropathy of left armEncounter for general adult medical exam w abnormal findingsHashimoto's thyroiditisGERD w/o esophagitis [address] [facility] [address], [place], [place], [id number] , [place]. [phone] Family History Family Member Type Diagnosis Age At Onset Mother Problem of fall, HTN, 53 Father Problem prostate CA Sister Problem Hypertension Brother Problem Alive and well Payers Payer name Insurance type Covered alliance party ID Authoriza tion(s) No Information Social History Type Description Quantity Date Captured Comments Alcohol Use Details Unknown Caffeine Use Details Unknown Tobacco Use Status No Information Smoking Status No Information Sex Female Chief Complaint And Reason For Visit No Information Plan Of Treatment Date Type Action Status Referral Ordered: Fela Saxena -[facility]opathic [facility] Osteopathic Physicians : Plastic Surgery (related to Mononeuropathy of left arm) ordered Referral Referred To: Fela Saxena [address] [place] [address], [phone] Ordered: Referrals: [facility]opathic [facility] Osteopathic Physicians : Plastic Surgery. Fela Saxena. Evaluate and treat ordered Referral Ordered: MAMMOGRAM, SCREENING ordered Referral Ordered: MOTOR NERVE CONDUCTION TEST ordered History Of Present Illness Encounter Date Complaint History Of Prese nt Illness physical Pt needs annual physical. Pt has chronic HTN. Pt denies any chest pain or headache. Pt was never on medication in the past Pt has bilateral carpal tunnel for many years but she feels worsening left index finger pain and paresthesia lately. Pt notices some burning and numbness type of pain left index finger and sometimes radiating to medial left hand and wrist area. pt denies any elbow pain. Pt has margarita. Pt sees endo. Pt is on synthroid. Pt has chronic GERD Pt takes omeprazole daily. Pt had negative EGD 5 years ago. Pt denies any other complaints Instructions Date Instruction Additional Infor mation No Information Assessments Type Assessment Date No Information
== END 2024-12-15 11:23 | disposition home or self-care (01) ==
PROVIDERS: PCP Nurse Practitioner; Visit Provider Obstetrics & Gynecology
DX: Z12.31 Encounter for screening mammogram for malignant neoplasm of breast (principal)
CPT/HCPCS: 77063; 77067

== ENCOUNTER 2025-06-25 08:10 | Outpatient (CLI) | payer BC, SELFPAY ==
--- NOTE | ~2025-06-25 | US_ITS ---
ULTRASOUND ABDOMEN LIMITED (RIGHT UPPER QUADRANT) Clinical History: R10.11 - Right upper quadrant pain Comparison: Abdominal ultrasound 02/25/2020 Technique: Right upper quadrant sonography Findings: Liver: Normal size. Echogenic. No intrahepatic biliary ductal dilatation. Normal hepatopedal flow main portal vein. Common Duct: Normal caliber. 5 mm. Gallbladder: Removed. Pancreas: Unremarkable. IMPRESSION: 1. No acute findings. Reviewed, dictated and finalized at location R. OSITION MIXER IMPRESSION: 1. No acute findings.
== END 2025-06-25 08:11 | disposition home or self-care (01) ==
PROVIDERS: PCP Nurse Practitioner; Visit Provider Clinical Nurse Specialist
DX: R10.11 Right upper quadrant pain (principal)
CPT/HCPCS: 76705